=== PATIENT | female | born 1950 | race Caucasian/White ===

== ENCOUNTER 2019-08-26 08:59 | Day surgery (SDC) | payer MEDICARE ==
[~2019-08-26] VITALS: Ht 167.6 cm; Wt 75.0 kg
[~2019-08-26 08:59] MED LIST: ARICEPT10 MG PO; ESKALITH CR450 M1 PO; HYDROCODONE-APA1 TAB PO; LEVSIN/ANASP0.125 MG PO; LOMOTIL TABLET1 TAB PO; PEPCID20 MG PO; PHENERGAN25 M1 PO; SYNTHROID50 MCG PO; ULTRAM50 MG PO; XANAX0.5 MG PO
[2019-08-26 09:44] LABS: HEMATOCRIT 46.8 % (36.0-48.0); HEMOGLOBIN 15.3 g/dL (12-16); MCH 29.7 pg (26.0-34.0); MCHC 32.7 g/dL (31.0-37.0); MCV 90.7 fL (80.0-100.0); MEAN PLATELET VOLUME 9.4 fL (7.4-10.4); RBC 5.16 10x6/uL (4.00-5.40); WBC 4.6 10x3/uL (4.8-10.8)
[2019-08-26 10:42] VITALS: BP 180/82; Ht 167.6 cm; Wt 75.0 kg
--- NOTE | 2019-08-26 11:56 | NUR ---
PT IS RESTING QUIETLY IN BED. FRIEND AT BEDSIDE. IS TOLERATING LIQUIDS. DENIES PAIN/NEEDS AT THIS TIME. WILL CONTINUE TO MONITOR.
--- NOTE | 2019-08-26 12:03 | NUR ---
DC INSTRUCTIONS GIVEN TO PT. STATES UNDERSTANDING. DC'D IV CATH FULLY INTACT.
--- NOTE | 2019-08-26 12:50 | NUR ---
PT LEFT UNIT VIA WC AT 1212
--- NOTE | 2019-08-26 13:51 | HP ---
PATIENT: ANNI CHÁVEZ MEDICAL RECORD: [id number] ACCOUNT: [id number] LOCATION:[facility] : 46 ADMISSION DATE: 08/26/19 PCP: ELIO SACNHEZ MD HISTORY AND PHYSICAL EXAMINATION CHIEF COMPLAINT: History of carpeting polyp of the transverse colon. HISTORY OF PRESENT: I last performed a colonoscopy on this lady back in 2014. She has had a history of colectomy. The colectomy was for precancerous areas in her colon, it was performed by Dr. Snell in the past. Since then, the patient was noted to have a complex polyp and this was located in the transverse colon. During my colonoscopy back in May of 2014, I was able to advance to the ileocolonic anastomosis. This appeared to be a vonm-dp-[id number] anastomosis. I did not note any carpeting proximal transverse colon polyp, which Dr. Hagan had seen in the past. The patient was to have a surveillance colonoscopy within the next year or two; however, due to some life issues, she had to delay this. She is here today for colonoscopy. ALLERGIES: Reviewed. HOME MEDICATIONS: Reviewed. SOCIAL HISTORY: Former smoker. PAST MEDICAL AND SURGICAL HISTORY: Asthma, bronchitis, history of pacemaker, history of heart rhythm problems, hypothyroidism, history of colon polyps, history of partial colectomy, history of hysterectomy, history of laparoscopic cholecystectomy, history of D&Cs, history of inguinal hernia repair, and history of a thyroidectomy. PHYSICAL EXAMINATION: GENERAL: The patient does not appear acutely ill. She does not appear chronically ill. VITAL SIGNS: Reviewed. EARS: External ears appear normal. EYES: Extraocular movements are intact. NECK: Trachea is midline. CHEST: No intercostal retractions. PULMONARY: Nonlabored, no stridor. IMPRESSION: 1. History of colon resection due to colon polyps. 2. History of a proximal transverse colon polyp. PLAN: Colonoscopy and polypectomies. TRANSINT:[id number] Voice Confirmation ID: [id number] DOCUMENT ID: [id number] HISTORY AND PHYSICAL [id number] ROBERTJAMEELANNI ROBERT MD at 1351 CC: XIN HAGAN MD, ELIO SANCHEZ MD and HARRY ARRIAGA [id number] DICTATION DATE: 08/26/19 1104 VAULT TELLER: 08/26/19 1143 [facility] 08/26/19 [facility] [address] [place] [address]
--- NOTE | 2019-08-26 15:59 | OP ---
PATIENT NAME: ANNI CHÁVEZ MEDICAL RECORD: [id number] :46 LOCATION:D.OPS ADMISSION DATE: SURGEON: STEPHAN LUBIN MD DATE OF OPERATION: 08/26/2019 PRINCIPAL DIAGNOSES: 1. History of colon resection. 2. History of complex colon polyps including a carpeting polyp of the proximal transverse colon. POSTOPERATIVE DIAGNOSES: 1. History of colon resection. 2. History of complex colon polyps including a carpeting polyp of the proximal transverse colon. 3. No evidence of polyps or masses. 4. The patient had mild pandiverticulosis with one impacted diverticulum that I was able to wash away. PROCEDURES: Total colonoscopy to cecum. SURGEON: Stepahn Lubin MD CLIENT INTEGRATION MANAGER: None. BLOOD LOSS: Minimal. ANESTHESIA: IV sedation. COMPLICATIONS: None. The risks, possible complications and alternatives to the procedure were explained to the patient. She elects to proceed. ENDOSCOPIC COURSE: The patient was conveyed to endoscopy suite electively on 08/26/2019. IV sedation was induced by the anesthesia staff. The patient was placed in the Monson position. A digital rectal examination was performed. A colonoscope was inserted through the anus. It was easily advanced to the ileocolonic anastomosis. I intubated the ileum. It appeared normal. I then examined the cecum, it appeared normal as well. I slowly withdrew the endoscope. The prep was adequate. The pullback was greater than a 13-minute pullback. I utilized normal imaging as well as narrow band imaging to visualize the chavez of the colon. There was one impacted diverticulum that I was able to clear by washing it out with the water irrigation. A retroflexed view was obtained in the rectum. The patient did have enlarged internal hemorrhoids. I then unretroflexed the scope and removed it under direct vision. There is no need for the patient to follow up with me in the office unless she develops a complication related to this operative procedure. I will plan for her next surveillance colonoscopy to take place in 3 years. TRANSINT:[id number] Voice Confirmation ID: [id number] DOCUMENT ID: [id number] OPERATIVE REPORT [id number] ANNI CHÁVEZ ROBERT MD at 7157 CC: [id number] DICTATION DATE: 08/26/19 1140 STEEL GRINDER: 08/26/19 6195 [facility] [place] 08/26/19 [facility] [address] [id number]
== END 2019-08-26 12:12 | disposition home or self-care (01) ==
LOC: D.OPS 08:59
PROVIDERS: Anesthesiology; ATTEND Surgery
DX: Z86.010 Personal history of colon polyps (principal); J45.909 Unspecified asthma, uncomplicated; Z95.0 Presence of cardiac pacemaker; E03.9 Hypothyroidism, unspecified